=== PATIENT | female | born 1990 | race African-American/Black ===

== ENCOUNTER 2017-03-25 12:03 | Emergency (ER) | payer MEDICAID ==
[~2017-03-25 12:03] MED LIST: SPRI28TA PO
[2017-03-25 12:06] VITALS: BP 140/71; PULSE 70; RESP 22; TEMP 98.6; O2SAT 99
[2017-03-25 12:08] VITALS: BP 141/79; PULSE 71; RESP 18; TEMP 98.6; O2SAT 100
--- NOTE | 2017-03-25 12:26 | PD ---
Data Data Last Documented VS Vital Signs Date Time Temp Pulse Resp B/P (MAP) Pulse Ox O2 Delivery O2 Flow Rate FiO2 03/25/17 13:30 03/25/17 12:44 98 21 03/25/17 12:08 98.6 71 18 Room Air Orders Orders Albuterol-Ipratropium Neb (Duoneb Neb) (03/25/17 12:30) Dexamethasone Inj (Decadron Inj) (03/25/17 12:30) MDM Medical Record Reviewed: Yes Supervised Visit with COLE: No Narrative Course This report is in ERROR Please disregard this report and all prior copies ! This report is in ERROR Please disregard this report and all prior copies ! This report is in ERROR Please disregard this report and all prior copies ! Scripts Benzonatate (Tessalon Perles) 100 Mg Cap 100 MG PO TID Y for COUGH, #20 CAP 0 Refills Prov: Troy Gomez MD 03/25/17 Albuterol 8.5 GM Inh (Proair Hfa 8.5 GM Inh) 90 Mcg/Act Aer 2 PUFF INH Q6H Y for SHORTNESS OF BREATH, #1 INHALER 0 Refills 108 mcg/actuation Prov: Troy Gomez MD 03/25/17 Troy Gomez MD Mar 25, 2017 12:26
--- NOTE | 2017-03-25 12:29 | PD ---
HPI Chief Complaint: Dyspnea Time Seen by Provider: 12:26 Travel History International Travel<30 days: No Contact w/Intl Traveler<30days: No History of Present Illness HPI 26 yo F c/o cough and wheezing. + Hx asthma. +Current smoker. [facility] Treated her for bronchitis one week prior w prednisone and antibiotics which patient states was minimally beneficial. No chest pain. No fever. No sore throat. PFSH Past Medical History Asthma: Yes Diminished Hearing: No Social History Alcohol Use: No Tobacco Use: No Substance Use: No Allergies-Medications (Allergen,Severity, Reaction): Coded Allergies: No Known Allergies (Verified , 03/25/17) Reported Meds & Prescriptions Reported Meds & Active Scripts Active Tessalon Perles (Benzonatate) 100 Mg Cap 100 Mg PO TID PRN Proair Hfa 8.5 GM Inh (Albuterol Sulfate) 90 Mcg/Act Aer 2 Puff INH Q6H PRN 108 mcg/actuation Sprintec 28 (Ethinyl Estradiol/Norgestimate) 1 Tab Tab 1 Tab PO DAILY Review of Systems Except as stated in HPI: all other systems reviewed are Neg General / Constitutional: No: Fever Physical Exam Narrative GENERAL: 26 yo F, WNWD, NAD SKIN: Warm and dry. HEAD: Atraumatic. Normocephalic. EYES: Pupils equal and round. No scleral icterus. No injection or drainage. ENT: No nasal bleeding or discharge. Mucous membranes pink and moist. NECK: Trachea midline. No JVD. CARDIOVASCULAR: Regular rate and rhythm. RESPIRATORY: Wheezing present bilaterally. No significant dyspnea. GASTROINTESTINAL: Abdomen soft, non-tender, nondistended. Hepatic and splenic margins not palpable. MUSCULOSKELETAL: Extremities without clubbing, cyanosis, or edema. No obvious deformities. NEUROLOGICAL: Awake and alert. No obvious cranial nerve deficits. Motor grossly within normal limits. Five out of 5 muscle strength in the arms and legs. Normal speech. PSYCHIATRIC: Appropriate mood and affect; insight and judgment normal. Data Data Last Documented VS Vital Signs Date Time Temp Pulse Resp B/P (MAP) Pulse Ox O2 Delivery O2 Flow Rate FiO2 03/25/17 13:30 03/25/17 12:44 98 21 03/25/17 12:08 98.6 71 18 Room Air BP 141/79, vs reviewed Orders Orders Albuterol-Ipratropium Neb (Duoneb Neb) (03/25/17 12:30) Dexamethasone Inj (Decadron Inj) (03/25/17 12:30) MDM Medical Decision Making Medical Screen Exam Complete: Yes Emergency Medical Condition: Yes Medical Record Reviewed: Yes Differential Diagnosis cough variant asthma, bronchitis, pna, gerd, copd Narrative Course presentation likely c/w cough variant asthma decadron/debs here tesdeeptipan [place] albuterol f/u [facility] Diagnosis Primary Impression: Cough variant asthma Referrals: [facility] 2 days Med/Other Pt SpecificInfo: Prescription(s) given Scripts Benzonatate (Tessalon Perles) 100 Mg Cap 100 MG PO TID Y for COUGH, #20 CAP 0 Refills Prov: Troy Gomez MD 03/25/17 Albuterol 8.5 GM Inh (Proair Hfa 8.5 GM Inh) 90 Mcg/Act Aer 2 PUFF INH Q6H Y for SHORTNESS OF BREATH, #1 INHALER 0 Refills 108 mcg/actuation Prov: Troy Gomez MD 03/25/17 Disposition: 01 DISCHARGE HOME Condition: Stable Troy Gomez MD Mar 25, 2017 12:29
[2017-03-25] MEDS ORDERED: DEXAMETHASONE SOD PHOS 4 MG/ML VIAL IM ONE (12:30)
[2017-03-25] MEDS: RESP: ALBUTEROL 2.5 MG/IPRATROPIUM 0.5 MG NEB (SCH) INH (12:40)
[2017-03-25 12:44] VITALS: O2SAT 98
[2017-03-25] MEDS ORDERED: ALBUAER3 INH (13:30)
[2017-03-25] MEDS ORDERED: BENZ100 PO (13:30)
== END 2017-03-25 13:31 | disposition home or self-care (01) ==
LOC: NEPK 12:03
DX: J45.991 Cough variant asthma (principal); F17.210 Nicotine dependence, cigarettes, uncomplicated
CPT/HCPCS: 94640; 94664; 96372; 99284; J1100

== ENCOUNTER 2017-06-02 05:46 | Emergency (ER) | payer MEDICAID ==
[~2017-06-02] VITALS: Ht 167.6 cm; Wt 120.0 kg
[~2017-06-02 05:46] MED LIST changes: +ALBUAER3 INH; +BENZ100 PO
[2017-06-02 05:47] VITALS: BP 142/77; PULSE 94; RESP 16; TEMP 98.2; O2SAT 100
[2017-06-02] MEDS ORDERED: BACT800T5 PO (06:20)
[2017-06-02] MEDS ORDERED: PERC5TAB12 PO (06:20)
--- NOTE | 2017-06-02 06:24 | PD ---
HPI Chief Complaint: Skin Problem Time Seen by Provider: 05:58 Travel History International Travel<30 days: No Contact w/Intl Traveler<30days: No Traveled to known affect area: No History of Present Illness HPI 26-year-old black female presents to emergency Department with a three-day history of a left buttock abscess. She's had a history of these in the past. She states that they typically come when she has her period. She denies any fever or chills. No abdominal pain. No vaginal complaints. Symptoms are moderate. No alleviating factors. PFSH Past Medical History Narrative Medical Asthma. Denies diabetes. Asthma: Yes Diminished Hearing: No Immunizations Current: Yes ?: Not Social History Alcohol Use: Yes Tobacco Use: Yes Substance Use: No Allergies-Medications (Allergen,Severity, Reaction): Coded Allergies: No Known Allergies (Verified , 03/25/17) Reported Meds & Prescriptions Reported Meds & Active Scripts Active Percocet (Oxycodone-Acetaminophen) 5-325 mg Tab 1 Tab PO Q4H PRN Bactrim DS (Sulfamethoxazole-Trimethoprim) 800-160 Mg Tab 2 Tab PO BID Tessalon Perles (Benzonatate) 100 Mg Cap 100 Mg PO TID PRN Proair Hfa 8.5 GM Inh (Albuterol Sulfate) 90 Mcg/Act Aer 2 Puff INH Q6H PRN 108 mcg/actuation Sprintec 28 (Ethinyl Estradiol/Norgestimate) 1 Tab Tab 1 Tab PO DAILY Review of Systems General / Constitutional: No: Fever Eyes: No: Visual changes HENT: No: Headaches Cardiovascular: No: Chest Pain or Discomfort Respiratory: No: Shortness of Breath Gastrointestinal: No: Abdominal Pain Genitourinary: No: Dysuria Musculoskeletal: No: Pain Skin: Positive Lumps, No Rash Neurologic: No: Weakness Psychiatric: No: Depression Endocrine: No: Polydipsia Hematologic/Lymphatic: No: Easy Bruising Physical Exam Narrative GENERAL: This is a well-nourished, well-developed patient, in no apparent distress. Patient's examined with nurse Mellissa sevilla present SKIN: Patient has a 3 x 4 cm abscess to the left buttocks. It is tender, warm and indurated. Slight fluctuance but no pointing. Warm and dry. HEAD: Atraumatic. Normocephalic. EYES: PERRL, EOMI, no discharge or injection. No scleral icterus. EARS: Clear NOSE: Nasal turbinates appear normal. THROAT: Mucosa pink and moist. Airway patent. NECK: Trachea midline. supple, moves head freely. LUNGS: Clear to auscultation. CV: Regular in rhythm. ABDOMEN: Soft nontender. EXT: No clubbing cyanosis or edema. Data Data Last Documented VS Vital Signs Date Time Temp Pulse Resp B/P (MAP) Pulse Ox O2 Delivery O2 Flow Rate FiO2 06/02/17 05:47 98.2 94 16 142/77 (98) 100 Room Air Orders Orders Oxycodone-Acetamin 5-325 Mg (Percocet (06/02/17 06:30) Sulfamet-Trimeth Ds 800-160 Mg (Bactrim (06/02/17 06:30) Ed Discharge Order (06/02/17 06:20) MDM Medical Decision Making Medical Screen Exam Complete: Yes Emergency Medical Condition: Yes Medical Record Reviewed: Yes Differential Diagnosis MDM: High Differential diagnoses: Abscess, folliculitis, cellulitis, lymphangitis, abrasion, contact dermatitis Narrative Course An incision and drainage has been performed. Patient's given 2 Bactrim DS and 2 Percocet 5 mg by mouth. Diagnosis Primary Impression: Left buttock abscess Patient Instructions: Narcotic given in the ED, General Instructions Departure Forms: Tests/Procedures, Work Release Special Instructions: No work 2 days. Additional Instructions: Rest. Elevation. keep clean and dry. Sits baths 2-3 times daily. Daily wound care with soap and water. Three Advil every 6 hours. Septra DS and Percocet Follow-up with a primary care doctor in 3-5 days.. Return to the ER for any problems. Med/Other Pt SpecificInfo: Prescription(s) given, Wound Care Scripts Oxycodone-Acetaminophen (Percocet) 5-325 mg Tab 1 TAB PO Q4H Y for PAIN, #12 TAB 0 Refills Prov: Maral Horvath MD 06/02/17 Sulfamethoxazole-Trimethoprim (Bactrim DS) 800-160 Mg Tab 2 TAB PO BID for Infection, #30 TAB 0 Refills Prov: Maral Horvath MD 06/02/17 Disposition: 01 DISCHARGE HOME Condition: Stable Uzair Grullon Jun 02, 2017 06:24
[2017-06-02] MEDS ORDERED: SULFAMETHOXAZOLE-TRIMETHOPRIM DS 800-160 MG TAB PO ONE (06:30)
[2017-06-02] MEDS ORDERED: oxyCODONE/ACETAMINOPHEN 5 MG/325 MG TAB PO ONE (06:30)
== END 2017-06-02 06:34 | disposition home or self-care (01) ==
LOC: NEPD 05:46
DX: L02.31 Cutaneous abscess of buttock (principal); J45.909 Unspecified asthma, uncomplicated; Z72.0 Tobacco use
CPT/HCPCS: 10060; 99284

== ENCOUNTER 2017-10-14 11:18 | Emergency (ER) | payer SELFPAY ==
[~2017-10-14 11:18] MED LIST changes: +BACT800T5 PO; +PERC5TAB12 PO
[2017-10-14 11:38] VITALS: BP 140/87; PULSE 61; RESP 16; TEMP 98.5; O2SAT 100
--- NOTE | 2017-10-14 12:17 | PD ---
HPI Chief Complaint: Oral / Dental Pain or Problem Time Seen by Provider: 11:55 (Iris Joshua) Time Seen by Provider: 11:55 (Maral Horvath MD) Travel History International Travel<30 days: No Contact w/Intl Traveler<30days: No Traveled to known affect area: No (Iris Joshua) History of Present Illness HPI 26-year-old female presents to the emergency room for evaluation of left lower dental pain for the past 3-4 days. Patient states she has constant pain in her wisdom teeth because they are coming incorrectly. She knows she has to have them removed but does not have insurance to do so at this time. States her insurance will kick in in 60 days. She has been taking [id number] Tylenol , Aleve, and Advil without relief in symptoms. States pain is severe worsened when air goes across it. She denies any other chronic medical conditions or daily medications. (Iris Joshua) History Past Medical Histgory LMP: 09/15/17 (Iris Joshua) Social History Alcohol Use: Yes Tobacco Use: Yes (Iris Joshua) Allergies-Medications (Allergen,Severity, Reaction): Coded Allergies: No Known Allergies (Verified , 03/25/17) Reported Meds & Prescriptions Reported Meds & Active Scripts Active Percocet (Oxycodone-Acetaminophen) 5-325 mg Tab 1 Tab PO Q4H PRN Bactrim DS (Sulfamethoxazole-Trimethoprim) 800-160 Mg Tab 2 Tab PO BID Tessalon Perles (Benzonatate) 100 Mg Cap 100 Mg PO TID PRN Proair Hfa 8.5 GM Inh (Albuterol Sulfate) 90 Mcg/Act Aer 2 Puff INH Q6H PRN 108 mcg/actuation Sprintec 28 (Ethinyl Estradiol/Norgestimate) 1 Tab Tab 1 Tab PO DAILY (Maral Horvath MD) Review of Systems Except as stated in HPI: all other systems reviewed are Neg (Iris Joshua) Physical Exam Narrative GENERAL: Well-nourished, well-developed female no acute distress. Afebrile. Ambulatory. Laughing on the phone. SKIN: Focused skin assessment warm/dry. HEAD: Normocephalic. EYES: No scleral icterus. No injection or drainage. NECK: Supple, trachea midline. No JVD or lymphadenopathy. DENTAL: No loose or chipped teeth. No malocclusion. Good dentition overall. Patient has bilateral wisdom teeth coming in critically. There is no surrounding erythema, edema, or induration. No drainage. No submental, submandibular, or buccal induration or edema. (Iris Joshua) Data Data Last Documented VS Vital Signs Date Time Temp Pulse Resp B/P (MAP) Pulse Ox O2 Delivery O2 Flow Rate FiO2 10/14/17 11:38 98.5 61 16 140/87 (104) 100 (Maral Horvath MD) MDM Medical Screen Exam Complete: Yes Emergency Medical Condition: No Differential Diagnosis Dentalgia Narrative Course 26-year-old female presents to the emergency room for evaluation of wisdom tooth pain. Patient states she has been having pain for the past 4 days. She is supposed to have her wisdom teeth removed but has not made an appointment yet. Physical exam is reassuring. Good dentition overall. Patient has bilateral wisdom teeth coming in critically. There is no surrounding erythema, edema, or induration. No drainage. No submental, submandibular, or buccal induration or edema. No evidence of infection at this time. Patient likely has pain from overcrowding. Told to follow-up with a dentist or return for worsening symptoms. There are no urgent or emergent medical conditions at this time. A medical screening exam was performed: At the time of evaluation the presenting medical condition was determined not to be of an emergent nature. The patient was given the option of receiving additional care, but declined. Patient was given options for additional community resources from which to obtain care. The Patient Has Been advised to seek medical attention for their presenting complaint. The patient has been advised to return to the ER at any time if an emergent condition develops. (Iris Joshua) Primary Impression: Encounter for medical screening examination Disposition: 01 DISCHARGE HOME Condition: Stable Iris Joshua Oct 14, 2017 12:17 Maral Horvath MD Oct 14, 2017 15:13
== END 2017-10-14 12:27 | disposition left against medical advice (07) ==
LOC: NEPK 11:18
DX: K08.89 Other specified disorders of teeth and supporting structures (principal); Z72.0 Tobacco use
CPT/HCPCS: 99281